=== PATIENT | female | born 2000 | race Caucasian/White ===

== ENCOUNTER 2021-09-03 21:02 | Emergency (ER) | payer OTHER ==
[~2021-09-03] VITALS: Ht 157.5 cm; Wt 72.6 kg
[2021-09-03] MEDS: LIDOCAINE MPF 1% 10 MG/ML VIAL INJ ONE (00:07)
[2021-09-03 21:12] VITALS: BP 118/80
--- NOTE | 2021-09-03 21:22 | NUR ---
PT IN LOBBY IN W/C.
--- NOTE | 2021-09-03 22:35 | NUR ---
PT TAKEN TO ER CHAIR C VIA WC.
--- NOTE | 2021-09-03 23:34 | NUR ---
[facility] [place] AT 2330 AND ACCEPTED AT [address] SCHROEDER
[2021-09-03 23:52] LABS: BASOPHILS # (AUTO) 0.1 K/uL (0.00-0.22); BASOPHILS % (AUTO) 0.5 % (0.0-2.0); EOSINOPHILS % (AUTO) 0.2 % (0.0-4.0); HEMATOCRIT 35.2 % (36-48); HEMOGLOBIN 11.7 g/dL (12.0-16.0); LYMPHOCYTES # (AUTO) 2.2 K/uL (2.5-16.5); LYMPHOCYTES % (AUTO) 14.7 % (20.5-51.1); MEAN CORPUSCULAR HEMOGLOBIN 30 pg (27-31); MEAN CORPUSCULAR HGB CONC 33 g/dL (33-37); MEAN CORPUSCULAR VOLUME 88.7 fL (80-94); MONOCYTES # (AUTO) 0.8 K/uL (0.8-1.0); MONOCYTES % (AUTO) 5.6 % (1.7-9.3); NEUTROPHILS # (AUTO) 11.9 K/uL (1.8-7.7); PLATELET COUNT (AUTO) 219 K/uL (140-450); RED BLOOD CELL COUNT(AUTO) 3.97 MIL/uL (4.20-5.40); RED CELL DISTRIBUTION WIDTH 13.8 % (11.6-13.7)
--- NOTE | 2021-09-04 00:08 | NUR ---
Patient to be transferred to [facility]. 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 Receiving facility has accepting physician and available space. ER physician has signed transfer form. Patient or responsible alliance party has agreed to transfer and signed form. Patient belongings inventoried and will be sent with patient. Copy of nursing notes, lab reports, EKG, Physicians Orders and X-rays to be sent with patient. Report called to MESERET at receiving facility. [facility] ambulance service has taken pt code 3 to [facility]
[2021-09-04 00:10] VITALS: BP 123/75
[2021-09-04 00:13] LABS: ANION GAP 9.1 (8-16); CARBON DIOXIDE 27.6 mmol/L (21-32); CREATININE 0.6 mg/dL (0.6-1.3); POTASSIUM 3.7 mmol/L (3.5-5.1)
== END 2021-09-04 00:11 | disposition short-term general hospital (02) ==
LOC: MED 21:02
DX: S01.01XA Laceration without foreign body of scalp, initial encounter (principal); S06.2X9A Diffuse traumatic brain injury with loss of consciousness of unspecified duration, initial encounter; Z88.0 Allergy status to penicillin; Z88.8 Allergy status to other drugs, medicaments and biological substances; W50.0XXA Accidental hit or strike by another person, initial encounter; Y93.9 Activity, unspecified; Y92.89 Other specified places as the place of occurrence of the external cause; Y99.8 Other external cause status
CPT/HCPCS: 12001; 36415; 70450; 80048; 81025; 85025; 99291; J2001; 99284